=== PATIENT | male | born 1945 | race Caucasian/White ===

== ENCOUNTER 2018-07-19 08:58 | Emergency (ER) | payer BC | END 2018-07-19 10:53 | disposition left against medical advice (07) | LOC: UCCORT 08:58 | DX: E11.9 Type 2 diabetes mellitus without complications (principal); Z76.0 Encounter for issue of repeat prescription; Z53.21 Procedure and treatment not carried out due to patient leaving prior to being seen by health care provider ==

== ENCOUNTER 2018-09-13 15:02 | Emergency (ER) | payer BC, MEDICARE ==
[2018-09-13 15:45] VITALS: BP 139/91
--- NOTE | 2018-09-13 15:58 | UC ---
Skin Complaint HPI - HPI Summary HPI Summary: Pt presents with c/o of firm bump at base of sternum, and itchy, small bumps on scalp pt unsure when they began. Pt states that he recently lost weight with change of diet and increased physical activity. Pt is also requesting that his dog be given therapy dog status. - History of Current Complaint Chief Complaint: UCSkin Time Seen by Provider: 09/13/18 15:44 Stated Complaint: LUMP ON CHEST/BUMPS ON HEAD Hx Obtained From: Patient Onset/Duration: Gradual Onset, Lasting Weeks, Still Present Timing: Constant Onset Severity: Mild Current Severity: Mild Pain Intensity: 0 Location: Diffuse, Discrete - crown of head and base of sternum- xyphoid process Character: Pruritus, Redness Aggravating Factor(s): Touch Alleviating Factor(s): Unknown Associated Signs & Symptoms: Positive: Rash - scalp - Allergy/Home Medications Allergies/Adverse Reactions: Allergies Allergy/AdvReac Type Severity Reaction Status Date / Time promethazine [From Phenergan] Allergy See Comment Verified 09/13/18 15:25 diabetic injection Allergy See Comment Uncoded 09/13/18 15:27 Home Medications: Home Medications Eye Injection 1 udc RIGHT EYE SEE INSTRUCTIONS 09/13/18 [History Confirmed 09/13] Insulin--Slow Acting 1 udc INJ DAILY 09/13/18 [History Confirmed 09/13/18] Insulin-Fast Acting 1 udc PO DAILY 09/13/18 [History Confirmed 09/13/18] Lisinopril TAB* [Prinivil TAB*] 10 mg PO DAILY 09/13/18 [History Confirmed 09/13] Metformin HCl 500 mg PO BID 09/13/18 [History Confirmed 09/13/18] glipiZIDE TAB* [Glucotrol TAB*] 5 mg PO BID 09/13/18 [History Confirmed 09/13/18 ] PMH/Surg Hx/FS Hx/Imm Hx Previously Healthy: Yes Endocrine History: Diabetes Cardiovascular History: Cardiac Disease - Surgical History Surgical History: Yes Surgery Procedure, Year, and Place: lithotripsy. urethral stent - Family History Known Family History: Positive: Cardiac Disease - Social History Occupation: Retired Lives: Alone Alcohol Use: Rare Substance Use Type: None Smoking Status (MU): Never Smoked Tobacco Have You Smoked in the Last Year: No - Immunization History Vaccination Up to Date: No Review of Systems All Other Systems Reviewed And Are Negative: Yes Constitutional: Positive: Negative Skin: Positive: Rash - scalp Eyes: Positive: Negative ENT: Positive: Negative Respiratory: Positive: Negative Cardiovascular: Positive: Negative Gastrointestinal: Positive: Negative Genitourinary: Positive: Negative Motor: Positive: Negative Neurovascular: Positive: Negative Musculoskeletal: Positive: Negative Neurological: Positive: Negative Psychological: Positive: Negative Is Patient Immunocompromised?: No Physical Exam Triage Information Reviewed: Yes Appearance: Well-Appearing Vital Signs: Initial Vital Signs Temp 98 F 09/13/18 15:28 Pulse 80 09/13/18 15:28 Resp 16 09/13/18 15:28 BP 139/91 09/13/18 15:28 Pulse Ox 97 09/13/18 15:28 Vital Signs Reviewed: Yes Eye Exam: Normal ENT Exam: Normal Dental Exam: Normal Neck exam: Other - golf ball size sebaceous cycst on back of neck. Pt has had this for "years", mild erythema, to left side of crown of head. No drainage, non tender, no crusting Neck: Positive: Supple, Nontender Respiratory Exam: Normal Cardiovascular Exam: Normal Abdominal Exam: Other - xyphoid process prominent and palpable. Non tender, non moveable Musculoskeletal Exam: Normal Neurological Exam: Normal Psychological Exam: Normal Skin Exam: Other - mild erythematous, non crusting, no drainage on left side crown of head.Large golf ball size, soft, moveable mass back of neck. Non tender. Course/Dx - Differential Diagnoses - Skin Complaint Differential Diagnoses: Contact Dermatitis - Diagnoses Provider Diagnosis: Dermatitis Discharge - Sign-Out/Discharge Documenting (check all that apply): Patient Departure All imaging exams completed and their final reports reviewed: No Studies - Discharge Plan Condition: Stable Disposition: HOME Patient Education Materials: Cyst (ED), Dermatitis (ED) Referrals: [facility] [place] [facility] [Outside] - If Needed No Primary Care Phys,NOPCP [Primary Care Provider] - Additional Instructions: Please establish care with a PCP for continued management of your health. - Billing Disposition and Condition Condition: STABLE Disposition: Home - Attestation Statements Provider Attestation: Per institutional requirements, I have reviewed the chart, however, I was not consulted specifically or made aware of this patient by the midlevel provider. I did not personally evaluate, interact with , or disposition this patient.
== END 2018-09-13 16:10 | disposition home or self-care (01) ==
LOC: UCCORT 15:02
DX: L30.9 Dermatitis, unspecified (principal); E11.9 Type 2 diabetes mellitus without complications; Z79.4 Long term (current) use of insulin; Z79.84 Long term (current) use of oral hypoglycemic drugs
CPT/HCPCS: 99212; G0463